=== PATIENT | male | born 1990 | race Caucasian/White ===

== ENCOUNTER → 2017-07-14 | Outpatient (REF) ==
--- NOTE | 2017-07-14 11:07 | RADIOLOGY IMAGING REPORT ---
FACILITY: [facility] [place] PATIENT NAME: Mesfin Espinosa : 1990 MR: [id number] V: [id number] EXAM DATE: ORDERING PHYSICIAN: SHONDA HAM TECHNOLOGIST: Location: [facility] [place] Patient: Mesfin Espinosa : 1990 Visit/Account:[id number] Date of Sevice: 07/14/2017 Technique: CHEST SINGLE AP HISTORY: Preemployment screening exam COMPARISON: None available Findings: The lungs are clear. No pleural effusion or pneumothorax. The cardiomediastinal silhouett e is normal. Impression: 1. No acute cardiopulmonary process. Report Dictated By: Kenrick Montanez DO at 07/14/2017 11:00 AM Report E-Signed By: Kenrick Montanez DO at 07/14/2017 11:00 AM WSN:[id number]
== END ==
LOC: RAD 10:18
PROVIDERS: ATTEND Physician Assistant Medical
DX: Z02.1 Encounter for pre-employment examination (principal)
CPT/HCPCS: 71045